=== PATIENT | male | born 1990 | race Two or more races ===

== ENCOUNTER → 2019-12-20 14:24 | Outpatient (BNVA) | payer OTHER, SELFPAY | PROVIDERS: Visit Provider Internal Medicine | DX: S67.32XA Crushing injury of left wrist, initial encounter (principal); S60.812A Abrasion of left wrist, initial encounter; X58.XXXA Exposure to other specified factors, initial encounter | CPT/HCPCS: 73130; 99203 ==

== ENCOUNTER → 2019-12-22 13:50 | Outpatient (BNVA) | payer OTHER, SELFPAY | PROVIDERS: Visit Provider Internal Medicine | DX: S67.22XA Crushing injury of left hand, initial encounter (principal); X58.XXXA Exposure to other specified factors, initial encounter | CPT/HCPCS: 99214 ==

== ENCOUNTER → 2019-12-27 11:28 | Outpatient (BNVA) | payer OTHER, SELFPAY | PROVIDERS: Visit Provider Internal Medicine | DX: S67.22XD Crushing injury of left hand, subsequent encounter (principal); W31.9XXD Contact with unspecified machinery, subsequent encounter | CPT/HCPCS: 99214 ==

== ENCOUNTER → 2020-01-03 14:27 | Outpatient (BNVA) | payer OTHER, SELFPAY | PROVIDERS: Visit Provider Internal Medicine | DX: S67 Crushing injury of wrist, hand and fingers (principal); X58.XXXD Exposure to other specified factors, subsequent encounter | CPT/HCPCS: 99213 ==

== ENCOUNTER → 2020-01-17 14:33 | Outpatient (BNVA) | payer OTHER, SELFPAY | PROVIDERS: Visit Provider Internal Medicine | DX: S67.22XD Crushing injury of left hand, subsequent encounter (principal); W31.9XXD Contact with unspecified machinery, subsequent encounter | CPT/HCPCS: 99213 ==